=== PATIENT | female | born 1985 ===

== ENCOUNTER 2022-12-30 13:43 | Outpatient (CLI) | payer OTHER ==
[~2022-12-30] VITALS: Ht 152.4 cm; Wt 65.3 kg
[2022-12-30 13:58] VITALS: BP 119/76
[2022-12-30] MEDS ORDERED: PRENTAB9 PO (14:12)
== END 2022-12-30 15:59 | disposition home or self-care (01) ==
LOC: M LDO 13:43
PROVIDERS: ATTEND Obstetrics & Gynecology
DX: O47.03 False labor before 37 completed weeks of gestation, third trimester (principal); Z3A.36 36 weeks gestation of pregnancy; O99.283 Endocrine, nutritional and metabolic diseases complicating pregnancy, third trimester; E86.0 Dehydration
CPT/HCPCS: 59025; G0463

== ENCOUNTER 2023-01-17 15:38 | Inpatient (IN) | payer OTHER ==
[~2023-01-17] VITALS: Ht 152.4 cm; Wt 65.7 kg
[~2023-01-17 15:38] MED LIST: PRENTAB9 PO
[2023-01-17 16:16] VITALS: BP 117/84
[2023-01-17] MEDS ORDERED: HOME MED LIST COMPLETE! XX SCH (16:25)
[2023-01-17] MEDS ORDERED: OXYTOCIN DRIP 30 UNITS in IV 1 EA IV PRN ×4 (17:30)
[2023-01-17] MEDS ORDERED: METHYLERGONOVINE MALEATE 0.2MG/ML 1ML VIAL IM PRN (17:30)
[2023-01-17] MEDS ORDERED: TRANEXAMIC ACID INJection 1,000 MG in NS 100 ML IV PRN (17:30)
[2023-01-17] MEDS: miSOPROStol 25MCG 1/4 TABLET PO SCH ×2 (17:51→22:08)
[2023-01-17 18:47] LABS: HEMATOCRIT 35.4 % (36.0-47.0); HEMOGLOBIN 11.2 g/dl (12.0-15.5); MEAN CORPUSCULAR HEMOGLOBIN 28.6 pg (27.0-33.0); MEAN CORPUSCULAR HGB CONC 31.6 g/dl (32.0-36.5); MEAN CORPUSCULAR VOLUME 90.3 fl (80.0-96.0); PLATELET COUNT, AUTOMATED 228 10^3/uL (150-450); RED BLOOD COUNT 3.92 10^6/uL (4.00-5.40); WHITE BLOOD COUNT 6.9 10^3/uL (4.0-10.0)
[2023-01-17 20:02] VITALS: BP 125/67
[2023-01-17 21:04] VITALS: BP 117/64
[2023-01-17 22:11] VITALS: BP 98/53
[2023-01-18] VITALS (24 sets, daily range): BP systolic 101–144; BP diastolic 62–86
[2023-01-18] MEDS: LR 1,000 ML IV SCH ×3 (01:30→09:30)
[2023-01-18] MEDS ORDERED: PENICILLIN G POTASSIUM 5 MU IV 5 MU in D5W MINI-BAG PLUS 100 ML IV STA (03:17)
[2023-01-18] MEDS ORDERED: ONDANSETRON 4MG 2ML VIAL IV PRN (04:00)
[2023-01-18] MEDS ORDERED: EPIDURAL/PCA KEYS XX PRN (04:00)
[2023-01-18] MEDS ORDERED: FENTANYL/ROPIVACAINE/NACL BAG 100 ML EPIDURAL SCH (04:00)
[2023-01-18] MEDS ORDERED: LR 500 ML IV PRN (04:00)
[2023-01-18] MEDS ORDERED: NALOXONE INJ 0.4MG/1ML VIAL IV PRN (04:00)
[2023-01-18] MEDS ORDERED: diphenhydrAMINE 50MG/ML VIAL IV PRN (04:00)
[2023-01-18] MEDS ORDERED: ePHEDrine SULFATE 25 MG/5 ML(5MG/ML) SYRINGE IVP PRN (04:00)
[2023-01-18] MEDS ORDERED: PEN G POT 3,000,000 UNIT/50 ML 3,000,000 UNIT in IV 1 EA IV SCH (07:30)
[2023-01-18] MEDS ORDERED: RHOGAM 300MCG (1500IU) INJ IM SCH (08:15)
[2023-01-18] MEDS ORDERED: DIBUCAINE 1% OINTMENT 30GM TOP PRN (08:15)
[2023-01-18] MEDS ORDERED: DOCUSATE SODIUM 100MG CAPSULE PO PRN (08:15)
[2023-01-18] MEDS ORDERED: ACETAMINOPHEN TAB 650MG DOSE (2X325MG) PO PRN (08:15)
[2023-01-18 08:51] LABS: CORD GAS ABE A -3.7; CORD GAS HCO3 A 24.8 MMOL/L; CORD GAS O2 SAT A 32.7 %; CORD GAS PCO2 A 58.8 mmHg; CORD GAS PH A 7.243 UNITS; CORD GAS PO2 A 17.7 mmHg; CORD GAS SBC A 19.8 MMOL/L; CORD GAS TCO2 A 26.6 MMOL/L
[2023-01-18 08:53] LABS: CORD GAS ABE V -3.1; CORD GAS HCO3 V 22.9 MMOL/L; CORD GAS O2 SAT V 69.5 %; CORD GAS PCO2 V 44.2 mmHg; CORD GAS PH V 7.332 UNITS; CORD GAS PO2 V 29.3 mmHg; CORD GAS SBC V 21.2 MMOL/L; CORD GAS TCO2 V 24.2 MMOL/L
[2023-01-18] MEDS: PRENATAL VITAMINS CHEWABLE TABLET PO SCH (09:00)
[2023-01-18] MEDS ORDERED: METOCLOPRAMIDE INJ 10MG/2ML VIAL IV ONE (09:25)
[2023-01-18] MEDS: IBUPROFEN 800 MG TAB PO PRN ×2 (09:37→21:23)
[2023-01-19 06:00] VITALS: BP 108/61
[2023-01-19] MEDS: PRENATAL VITAMINS CHEWABLE TABLET PO SCH (09:05)
[2023-01-19] MEDS ORDERED: ACET1TAB55 PO (10:22)
[2023-01-19] MEDS ORDERED: IBUP80TA PO (10:22)
[2023-01-20] MEDS ORDERED: MEASLES,MUMPS,RUBELLA VACCINE INJ (MMR-II) SC.IMMUN ONE (09:00)
== END 2023-01-19 18:20 | disposition home or self-care (01) | DRG 807 ==
LOC: M LDI 15:38 → M OBS 01-18 11:04
PROVIDERS: ADMIT Advanced Practice Midwife; ATTEND Registered Nurse
PROC: 3E033VJ Introduction of Other Hormone into Peripheral Vein, Percutaneous Approach (ICD-10-PCS; 2023-01-17)
PROC: 10E0XZZ Delivery of Products of Conception, External Approach (ICD-10-PCS; principal; 2023-01-18)
PROC: 3E0E77Z Introduction of Electrolytic and Water Balance Substance into Products of Conception, Via Natural or Artificial Opening (ICD-10-PCS; 2023-01-18)
DX: O69.81X0 Labor and delivery complicated by cord around neck, without compression, not applicable or unspecified (principal); Z37.0 Single live birth; O99.824 Streptococcus B carrier state complicating childbirth; Z3A.39 39 weeks gestation of pregnancy